=== PATIENT | male | born 1985 | race Two or more races ===

== ENCOUNTER 2021-12-01 21:33 | Emergency (ER) | payer MEDICAID ==
[~2021-12-01] VITALS: Ht 175.3 cm; Wt 84.3 kg
[2021-12-01 22:50] VITALS: BP 118/73
== END 2021-12-02 00:31 | disposition home or self-care (01) ==
LOC: ER 21:33
DX: M54.50 Low back pain, unspecified (principal); M54.2 Cervicalgia; R51.9 Headache, unspecified; V43.52XA Car driver injured in collision with other type car in traffic accident, initial encounter; Y93.89 Activity, other specified; Y92.410 Unspecified street and highway as the place of occurrence of the external cause; Y99.8 Other external cause status
CPT/HCPCS: 70450; 72125; 72131; 73501